=== PATIENT | male | born 1975 | race Caucasian/White ===

== ENCOUNTER 2022-01-15 17:51 | Outpatient (CLI) | payer BC, SELFPAY ==
--- NOTE | ~2022-01-15 | XR_ITS ---
EXAMINATION: XR chest 2V DATE: 01/15/2022 18:08 INDICATION: Dyspnea TECHNIQUE: PA and lateral views of the chest were obtained. COMPARISON: Chest radiograph dated 05/19/13 FINDINGS: The lungs remain clear with no focal airspace opacities, pulmonary edema, pleural effusion or pneumot horax. The cardiomediastinal silhouette is normal. Visualized bones and soft tissues are unremarkable . Cholecystectomy clips in the right upper quadrant. IMPRESSION: 1. No acute cardiopulmonary disease. Reviewed, dictated and finalized at location A.
== END 2022-01-15 17:52 | disposition home or self-care (01) ==
PROVIDERS: PCP Nurse Practitioner Family; Visit Provider Nurse Practitioner Family
DX: R06.09 Other forms of dyspnea (principal); H54.7 Unspecified visual loss
CPT/HCPCS: 71046

== ENCOUNTER 2022-01-20 16:11 | Outpatient (CLI) | payer BC, SELFPAY ==
--- NOTE | ~2022-01-20 | US_ITS ---
EXAMINATION: US carotid duplex BI DATE: 01/20/2022 16:49 INDICATION: Visual loss and vertigo TECHNIQUE: Grayscale, color Doppler, and pulsed Doppler images of the cervical carotid arteries were obtained. The degree of vessel stenosis is placed in one of the following categories: normal, <50%, 5 0-69%, >=70% but less than near-occlusion, near-occlusion, or total occlusion. Note that percent sten osis relative to normal distal artery lumen diameter is indirectly measured from velocity measurement s as described by Monroe, et al. Radiology 2003; 229:340-346. Notes: Normal: Peak systolic velocity <125 centimeters/sec and no plaque <50%. Peak systolic velocity <125 ( EDV <40; ICA/CCA PSV ratio <2.0; used these factors only a tandem lesions or low cardiac output or co ntralateral disease) 50-69 %: PSV 125-230 (EDV 40-100; ratio 2-4) >= 70% but less than near occlusion: PSV greater than 230 (EDV > 100; ratio> 4.0) Near Occlusion: PSV that is variable; markedly narrowed lumen Occlusion: Absent flow on color/spectral Doppler and no lumen on carrion scale. COMPARISON: None. FINDINGS: RIGHT: The right common carotid artery (CCA) peak systolic velocity (PSV) is 82 cm/s. The right internal car otid artery (ICA) PSV is 57 cm/s. The right ICA end-diastolic velocity (EDV) is 21 cm/s. The right IC A/CCA PSV ratio is 0.7. The external carotid artery (ECA) PSV is 107 cm/s. There is antegrade flow in the right vertebral artery. LEFT: The left CCA PSV is 85 cm/s. The left ICA PSV is 82 cm/s. The left ICA EDV is 25 cm/s. The left ICA/C CA PSV ratio is 1.0. The ECA PSV is 83 cm/s. There is antegrade flow in the left vertebral artery. IMPRESSION: 1. Less than 50% stenosis in the right internal carotid artery by sonographic criteria. 2. Less than 50% stenosis in the left internal carotid artery by sonographic criteria. Reviewed, dictated and finalized at location A. IMPRESSION: 1. Less than 50% stenosis in the right internal carotid artery by sonographic c zohaib. 2. Less than 50% stenosis in the left internal carotid artery by sonographic yamileth johnson.
== END 2022-01-20 16:12 | disposition home or self-care (01) ==
PROVIDERS: PCP Nurse Practitioner Family; Visit Provider Nurse Practitioner Family
DX: R06.09 Other forms of dyspnea (principal); H54.7 Unspecified visual loss; I65.23 Occlusion and stenosis of bilateral carotid arteries
CPT/HCPCS: 93880

== ENCOUNTER 2022-01-28 08:42 | Outpatient (CLI) | payer BC, SELFPAY ==
--- NOTE | ~2022-01-28 | CT_ITS ---
EXAMINATION: CT BRAIN W/O DATE: 01/28/2022 08:59 INDICATION: Near syncope. Headaches. Dilated pupils with dizziness. TECHNIQUE: Computed tomography (CT) of the head was performed without intravenous contrast. The dose- length product was 605.33 mGy-cm. Automated exposure control and iterative reconstruction technique w ere employed. COMPARISON: No prior studies for comparison. FINDINGS: Normal brain parenchymal volume for age. Normal carrion-white differentiation. No acute intrac ranial hemorrhage, infarction, mass or mass effect. No ventriculomegaly or midline shift. Midline sagittal images demonstrate a normal corpus callosum, c raniovertebral junction and sella turcica. Basilar cisterns are patent. Paranasal sinuses and mastoids are pneumatized. No depressed skull fractures. IMPRESSION: 1. No acute intracranial abnormality. Reviewed, dictated and finalized at location B.
== END 2022-01-28 08:43 | disposition home or self-care (01) ==
PROVIDERS: PCP Nurse Practitioner Family; Visit Provider Nurse Practitioner Family
DX: R42 Dizziness and giddiness (principal)
CPT/HCPCS: 70450

== ENCOUNTER 2022-04-22 08:42 | Emergency (ER) | payer BC, SELFPAY ==
--- NOTE | ~2022-04-22 | XR_ITS ---
EXAMINATION: XR chest 2V DATE: 04/22/2022 09:29 INDICATION: Right lower chest pain. TECHNIQUE: Frontal and lateral views of the chest were obtained. COMPARISON: Chest 2 views 01/15/2022 FINDINGS: There is mild atelectasis in left lower lung zone. No pleural effusion or pneumothorax. The heart size is normal. Surgical clips in the right upper quadrant are likely from cholecystectomy. IMPRESSION: 1. Mild atelectasis in left lower lung zone. Reviewed, dictated and finalized at location A. RIALS ASSOCIATE
--- NOTE | ~2022-04-22 | CT_ITS ---
EXAMINATION: CTA chest PE abdomen pel DATE: 04/22/2022 11:09 INDICATION: Chest pain which worsens with inspiration. Coughing and sneezing. Right upper quadrant ab dominal pain. TECHNIQUE: Computed tomography (CT) pulmonary angiogram of the chest was performed with 100 mL Omnipa que-350 intravenous contrast. Additional 3D reconstructions utilizing coronal maximum intensity proje ction (MIP) were performed. CT of the abdomen and pelvis was performed with intravenous contrast util izing the same contrast bolus following a short delay. Automated exposure control and iterative recon struction technique were employed. The dose-length product was 2536.66 mGy-cm. COMPARISON: None FINDINGS: Chest: The proximal but still adequate contrast opacification of the pulmonary arteries. Mild respiratory mo tion which does not significantly limit evaluation. No pulmonary embolism. Mild emphysema. Mild disco id atelectasis/scarring at the left lower lobe and lingula. Minimal dependent atelectasis in the bila teral lower lobes. No pneumonia, pulmonary edema, pleural effusion or pneumothorax. Heart size is nor mal. No pericardial or pleural effusion. Thoracic aorta is normal in caliber with no dissection. No p athologically enlarged thoracic lymphadenopathy. Mild upper thoracic levocurvature. Abdomen/pelvis: Cholecystectomy clips the gallbladder fossa. Liver, spleen, pancreas, bilateral adrenal glands and ki dneys are normal. Change of likely prior appendectomy with suture line near the tip of a small residu al appendiceal stump. No abnormal bowel wall thickening or obstruction. Partially decompressed bladde r is normal. No free intraperitoneal gas or fluid. No pathologically enlarged abdominal or pelvic lym phadenopathy. Bones are unremarkable. IMPRESSION: 1. No pulmonary embolism or other acute cardiopulmonary disease. 2. No acute intra-abdominal/pelvic process. Reviewed, dictated and finalized at location A. IX SUPERVISOR
[2022-04-22 08:43] VITALS: BP 139/93; PULSE 66; RESP 16; TEMP 36.6; O2SAT 100
--- NOTE | 2022-04-22 09:00 | ED.ABDPAIN ---
HPI - Abdominal Pain General Chief Complaint: Abdominal Pain Stated Complaint: RUQ abdominal pain - previous cholecystectomy Time Seen by Provider: 04/22/22 08:48 Source: RN notes reviewed History of Present Illness HPI narrative: Patient presents emergency room from home for right upper quadrant abdominal pain. Patient states the pain began 2 days ago. The pain is described as sharp and stabbing and does not radiate states the pain is improved when he sits upright and is worse with deep inspiration and movement such as twisting. He denies any fevers or chills he denies any nausea vomiting diarrhea or any other symptoms states he has not take anything for the pain states he does have a history of a previous cholecystectomy states the pain is constant Related Data Allergies Allergy/AdvReac Type Severity Reaction Status Date / Time No Known Allergies Allergy Unknown Verified 04/22/22 08:51 Review of Systems Review of Systems: Gen.: Denies fevers or chills ENT: Denies congestion Respiratory: Denies shortness of breath or cough CV: Denies chest pain or palpitations GI: See HPI denies burning, urgency, frequency or hematuria Musculoskeletal: Denies back pain or muscle pain Neuro: Denies numbness, tingling, weakness or focal weakness Skin: Denies rash Except as documented, all other systems reviewed and negative PMFSH Past Medical History Medical History (Updated 04/22/22 @ 12:10 by Hunter Rice DO) Patient denies significant medical history Surgical History Surgical History (Updated 04/22/22 @ 09:01 by Hunter Rice DO) Hx of cholecystectomy Social History Social History (Updated 04/22/22 @ 09:01 by Hunter Rice DO) Smoking status: Never smoker Exam Narrative: APPEARANCE: No acute distress, nontoxic, resting in bed HEENT: Normocephalic, atraumatic, OMM RESPIRATORY: No respiratory distress, clear to auscultation bilaterally with no rhonchi wheezing or rales CARDIOVASCULAR: RRR s murmur ABDOMINAL: Soft nondistended tender palpation right upper quadrant pain with twisting of the abdomen no tenderness left lower quadrant, left lower quadrant and right lower quadrant no rebound or MUSCULOSKELETAl: Moves all extremities. No clubbing, cyanosis or edema. NEURO: Awake and alert. Following commands, speech normal, no focal deficits SKIN:: Warm, dry. Normal Color PSYCHIATRIC: Normal affect/mood Course Course Emergency Course: Discussed with patient results of workup and diagnosis. Discussed need for follow-up with primary care, proper use of medication, and reasons to return to the emergency department. Patient understands and agrees to current treatment plan Vital Signs Vital signs: Vital Signs Temperature 97.9 F 04/22/22 08:43 Pulse Rate 66 04/22/22 08:43 Respiratory Rate 16 04/22/22 08:43 Blood Pressure 139/93 H 04/22/22 08:43 Pulse Oximetry 100 04/22/22 08:43 Oxygen Delivery Room Air 04/22/22 08:43 Temperature 97.9 F 04/22/22 08:43 Pulse Rate 52 L 04/22/22 11:38 Respiratory Rate 19 04/22/22 11:38 Blood Pressure 126/76 04/22/22 11:38 Pulse Oximetry 99 04/22/22 11:38 Oxygen Delivery Room Air 04/22/22 08:43 MDM - Abdominal Pain MDM Narrative Medical decision making narrative: Patient's abdomen is soft without significant pain or signs of surgical abdomen on serial exams. Lab and x-ray evaluations are reviewed and patient is felt to be a reasonable candidate for outpatient management. Patient was instructed as to limitations of x-ray and laboratory evaluation and encouraged to return to ED or primary physician for repeat exam in 12 hours if continued or worsening pain with pain with movement and twisting I suspect a component of musculoskeletal pain and possible abdominal wall strain Lab Data Result diagrams: 04/22/22 09:03 04/22/22 09:03 Labs: Lab Results 04/22/22 04/22/22 04/22/22 Range/Units 09:03 09:03 09:31
[2022-04-22] MEDS: KETOROLAC 30 MG/ML VIAL (*BKC) IV PUSH (09:06)
[2022-04-22 09:08] LABS: Basophils Percent Auto 0.5 % (0.2-1.2); Eosinophils Absolute Auto 0.1 K/mm3 (0-0.3); Eosinophils Percent Auto 1.4 % (0-4.4); Hematocrit 45.6 % (42.0-52.0); Hemoglobin 15.7 g/dL (14.0-18.0); Immature Granulocyte Absolute 0.01 K/mm3 (0.00-0.031); Immature Granulocyte Percent A 0.2 % (0-0.5); Lymphocytes Absolute Auto 1.62 K/mm3 (0.9-3.2); Lymphocytes Percent Auto 29.2 % (18.3-44.2); Mean Corpuscular HGB Conc 34.4 g/dl (32-36); Mean Corpuscular Hemoglobin 31.3 pg (26-34); Mean Corpuscular Volume 90.8 fl (80-100); Monocytes Absolute Auto 0.5 K/mm3 (0.1-0.6); Neutrophils Absolute Auto 3.3 K/mm3 (1.3-6.7); Neutrophils Percent Auto 59.7 % (45.5-73.1); Platelet Count Result 241 k/mm3 (150-375); Red Blood Count 5.02 M/mm3 (4.6-6.20); Red Cell Distribution Width 12.9 % (11.5-14.5); White Blood Count 5.5 K/mm3 (4.5-10.0)
[2022-04-22 09:20] LABS: Alanine Aminotransferase 61 U/L (6-50); Albumin Level 4.7 g/dL (3.5-5.1); Alkaline Phosphatase 115 U/L (38-126); Anion Gap 15 mmol/L (8-16); Aspartate Amino Transferase 36 U/L (17-59); Bilirubin,Total 0.7 mg/dL (0.2-1.3); Blood Urea Nitrogen 15 mg/dL (9-20); Calcium 9.1 mg/dL (8.4-10.2); Carbon Dioxide 26 mmol/L (22-30); Chloride 101 mmol/L (98-107); Estimated CRCL calculation 103 ml/min; Estimated Glomerular Filt Rate > 60; Glucose 98 mg/dL (65-110); Lipase 70 U/L (23-300); Potassium 3.9 mmol/L (3.4-5.0); Sodium 142 mmol/L (137-145)
--- NOTE | 2022-04-22 09:25 | PC.NURSE ---
pt unable to provide urine sample at this time. pt declining straight cath.
[2022-04-22 10:01] VITALS: BP 154/100; PULSE 55; RESP 15; O2SAT 98
[2022-04-22 10:09] LABS: Appearance Urine Clear (Clear); Bilirubin Urine 1+ (Negative); Blood Urine Negative (Negative); Color Urine Yellow (Yellow); Glucose Urine UA Negative (Negative); Ketones Urine Trace mg/dL (Negative); Leukocyte Esterase Ur Negative LEU/UL (Negative); Nitrate Urine Negative (Negative); Protein Urine Trace mg/dL (Negative); Specific Grav Ur >= 1.030 (1.001-1.035); Urobilinogen Urine 0.2 mg/dL (<2.0); pH Urine 5.5 (5.0-9.0)
[2022-04-22 10:21] LABS: Amorphous Sediment Urine Few; Bacteria Urine Trace /hpf; Mucus Urine Moderate /lpf; RBC Urine 0-2 /hpf (0-2); WBC Urine 0-3 /hpf
[2022-04-22 10:23] LABS: Add Urine Microscopic? YES
[2022-04-22 11:38] VITALS: BP 126/76; PULSE 52; RESP 19; O2SAT 99
[2022-04-22 12:40] VITALS: BP 129/83; PULSE 55; RESP 17; O2SAT 100
== END 2022-04-22 12:42 | disposition home or self-care (01) ==
PROVIDERS: Emergency Provider Emergency Medicine; PCP Nurse Practitioner Family
DX: R10.11 Right upper quadrant pain (principal)
CPT/HCPCS: 36415; 71046; 71275; 74177; 80053; 81001; 83690; 85025; 85380; 96374; 99284; J1885; Q9967

== ENCOUNTER 2022-07-11 09:51 | Outpatient (CLI) | payer BC, SELFPAY ==
[2022-07-11 12:38] LABS: Hemoglobin A1C 4.7 % (<5.7)
== END 2022-07-11 09:52 | disposition home or self-care (01) ==
LOC: ANHLAB 09:56
PROVIDERS: PCP Family Medicine
DX: R42 Dizziness and giddiness (principal)
CPT/HCPCS: 36415; 82607; 83036; 84155; 84165

== ENCOUNTER 2022-07-13 09:12 | Outpatient (NON) | payer BC, SELFPAY ==
[2022-07-16 19:25] LABS: Calculated Total (E+NE) 41 mcg/24 h (26-121); Dopamine, 24hr Urine 371 mcg/24 h (52-480); Norepinephrine, 24hr Urine 41 mcg/24 h (15-100)
== END 2022-07-13 09:13 | disposition home or self-care (01) ==
PROVIDERS: PCP Family Medicine
DX: R42 Dizziness and giddiness (principal)
CPT/HCPCS: 82384

== ENCOUNTER 2022-11-04 10:27 | Outpatient (CLI) | payer BC, SELFPAY ==
[2022-11-04 11:06] LABS: Cholesterol 176 mg/dL (0-200); HDL Direct 39 mg/dL; Triglycerides 112 mg/dL (<150)
[2022-11-04 11:28] LABS: Free T4 Free Thyroxine 1.38 ng/mL (0.78-2.19)
[2022-11-04 11:55] LABS: LDL Cholesterol Direct 111 mg/dL
[2022-11-09 02:17] LABS: Thyroid Peroxidase Antibodies 558 IU/mL (<9)
== END 2022-11-04 10:28 | disposition home or self-care (01) ==
PROVIDERS: Visit Provider Internal Medicine
DX: E03.9 Hypothyroidism, unspecified (principal)
CPT/HCPCS: 36415; 80061; 84439; 84443; 86376

== ENCOUNTER 2022-11-04 10:54 | Outpatient (CLI) | payer BC, SELFPAY ==
--- NOTE | ~2022-11-04 | US_ITS ---
Thyroid ultrasound. Clinical History: Hypothyroid Findings: Real-time sonography of the thyroid gland was performed. The right lobe measures 5.3 x 2.7 x 2.2 cm. The left lobe measures 4.6 x 1.7 x 2.1 cm. The isthmus is 4 mm in AP diameter. Thyroid parenchyma is diffusely heterogeneous, without definite, discrete nodule. Impression: Heterogeneous thyroid gland without definite discrete nodule. Reviewed, dictated and finalized at [facility]. Impression: Heterogeneous thyroid gland without definite discrete nodule.
== END 2022-11-04 10:55 ==
LOC: MICIMG 10:55
PROVIDERS: PCP Internal Medicine; Visit Provider Internal Medicine
DX: E03.9 Hypothyroidism, unspecified (principal)
CPT/HCPCS: 76536

== ENCOUNTER 2022-11-06 12:59 | Outpatient (NON) | payer BC, SELFPAY ==
[2022-11-20 16:28] LABS: Cortisol, Saliva 0.23 mcg/dL
[2022-11-20 16:28] LABS: Cortisol, Saliva 0.18 mcg/dL
== END 2022-11-06 13:00 | disposition home or self-care (01) ==
PROVIDERS: PCP Internal Medicine; Visit Provider Internal Medicine
DX: E03.9 Hypothyroidism, unspecified (principal); R63.5 Abnormal weight gain
CPT/HCPCS: 82530

== ENCOUNTER 2022-12-18 12:56 | Outpatient (CLI) | payer BC, SELFPAY ==
[2022-12-18 14:22] LABS: Free T4 Free Thyroxine 1.29 ng/mL (0.78-2.19)
== END 2022-12-18 12:57 | disposition home or self-care (01) ==
PROVIDERS: PCP Internal Medicine; Visit Provider Internal Medicine
DX: E03.9 Hypothyroidism, unspecified (principal); E06.3 Autoimmune thyroiditis
CPT/HCPCS: 36415; 84439; 84443

== ENCOUNTER 2022-12-23 11:25 | Outpatient (CLI) | payer BC, SELFPAY | END 2022-12-23 11:26 | disposition home or self-care (01) | LOC: ANHLAB 11:26 | PROVIDERS: PCP Internal Medicine; Visit Provider Internal Medicine | DX: E03.9 Hypothyroidism, unspecified (principal); R63.5 Abnormal weight gain | CPT/HCPCS: 82530 ==

== ENCOUNTER 2023-01-28 15:28 | Outpatient (CLI) | payer BC, SELFPAY ==
[2023-01-28 17:39] LABS: Free T4 Free Thyroxine 1.39 ng/mL (0.78-2.19)
== END 2023-01-28 15:29 | disposition home or self-care (01) ==
LOC: ANHLAB 15:29
PROVIDERS: PCP Family Medicine; Visit Provider Internal Medicine
DX: E03.9 Hypothyroidism, unspecified (principal)
CPT/HCPCS: 36415; 84439; 84443

== ENCOUNTER 2023-05-03 13:07 | Outpatient (CLI) | payer BC, SELFPAY ==
[2023-05-03 14:14] LABS: Free T4 Free Thyroxine 1.75 ng/mL (0.78-2.19)
== END 2023-05-03 13:08 | disposition home or self-care (01) ==
PROVIDERS: PCP Family Medicine; Visit Provider Internal Medicine
DX: E03.9 Hypothyroidism, unspecified (principal)
CPT/HCPCS: 36415; 84439; 84443

== ENCOUNTER 2024-01-11 14:25 | Outpatient (CLI) | payer BC, SELFPAY ==
--- NOTE | ~2024-01-11 | XR_ITS ---
XR chest 2V Ordering provider: Robles Marquis MD History: 48 years Male with . R06.02 - Shortness of breath . Comparison: April 22, 2022 FINDINGS: MEDIASTINUM: The cardiac silhouette is not enlarged. LUNGS: No infiltrates, effusions or pneumothorax. OTHER: No free air under the diaphragm. IMPRESSION: No acute cardiopulmonary pathology. Reviewed, dictated and finalized at location A.
== END 2024-01-11 14:26 ==
LOC: MICIMG 14:26
PROVIDERS: PCP Family Medicine; Visit Provider Family Medicine
DX: R06.02 Shortness of breath (principal)
CPT/HCPCS: 71046

== ENCOUNTER 2024-03-14 12:42 | Outpatient (CLI) | payer BC, SELFPAY ==
--- NOTE | ~2024-03-14 | US_ITS ---
EXAMINATION: US thyroid DATE: 03/14/2024 12:59 INDICATION: Goiter. Left neck lump. TECHNIQUE: Multiple ultrasound images of the thyroid were obtained. COMPARISON: Ultrasound 11/04/2022 FINDINGS: The right thyroid lobe measures 5.2 x 2.0 x 2.4 cm. The left thyroid lobe measures 4.8 x 1.7 x 1.7 c m. The thyroid is diffusely hypoechoic with coarsened echotexture. Vascularity is normal. No discret e nodule. IMPRESSION: 1. Heterogeneous thyroid, consistent with chronic lymphocytic (Elian) thyroiditis. Reviewed, dictated and finalized at location A. IMPRESSION: 1. Heterogeneous thyroid, consistent with chronic lymphocytic (Elian) thyro iditis.
== END 2024-03-14 12:43 | disposition home or self-care (01) ==
LOC: GOSHIMG 12:43
PROVIDERS: PCP Family Medicine; Visit Provider Internal Medicine
DX: E04.1 Nontoxic single thyroid nodule (principal)
CPT/HCPCS: 76536

== ENCOUNTER 2024-12-19 13:35 | Outpatient (CLI) | payer OTHER, SELFPAY ==
--- NOTE | ~2024-12-19 | XR_ITS ---
EXAM/ PROCEDURE: XR foot LT 2V - 12/19/2024 13:37 CDT HISTORY: 49 years old Male with M79.672 - Pain in left foot COMPARISON: None available TECHNIQUE: Three view(s) FINDINGS/ IMPRESSION: There are no fractures or dislocations.Joint spaces are within normal limits. Mild hallux valgus deformity and mild bunion formation. Reviewed, dictated and finalized at location A.
== END 2024-12-19 13:36 | disposition home or self-care (01) ==
LOC: MICIMG 13:36
PROVIDERS: PCP Family Medicine; Visit Provider Nurse Practitioner Adult Health
DX: M20.12 Hallux valgus (acquired), left foot (principal); M21.612 Bunion of left foot
CPT/HCPCS: 73620

== ENCOUNTER 2024-12-26 15:11 | Outpatient (CLI) | payer OTHER, SELFPAY ==
--- NOTE | ~2024-12-26 | US_ITS ---
US thyroid INDICATION: Palpable thyroid lumps TECHNIQUE: Real-time sonographic images of the thyroid gland were obtained. COMPARISON: Ultrasound dated 03/14/2024 FINDINGS: The right thyroid lobe measures 4.4 x 2.4 x 2.2 cm. The left thyroid lobe measures 3.8 x 1 .8 x 1.6 cm.. There is heterogeneous echotexture and echogenicity throughout the thyroid gland. No di screte nodules identified. Normal vascular flow is present. There are multiple lymph nodes all with fatty hilum, largest on the right measuring 2.2 x 0.6 x 0.9 cm and on the left measuring 1.6 x 0.9 x 0.4 cm. IMPRESSION: 1. Bilateral cervical lymph nodes all with normal fatty hilum, likely reactive.. Reviewed, dictated and finalized at location B. IMPRESSION: 1. Bilateral cervical lymph nodes all with normal fatty hilum, likely reactive ..
== END 2024-12-26 15:12 | disposition home or self-care (01) ==
LOC: MICIMG 15:12
PROVIDERS: PCP Family Medicine; Visit Provider Internal Medicine
DX: E04.9 Nontoxic goiter, unspecified (principal); R59.0 Localized enlarged lymph nodes; E06.3 Autoimmune thyroiditis
CPT/HCPCS: 76536

== ENCOUNTER 2025-01-12 09:19 | Outpatient (CLI) | payer OTHER, SELFPAY ==
--- NOTE | ~2025-01-12 | MR_ITS ---
EXAMINATION: MR foot LT wo con DATE: 01/12/2025 10:03 INDICATION: Acquired hallux valgus at the left foot TECHNIQUE: Magnetic resonance imaging (MRI) of the left fore/mid foot was performed without intraveno us contrast. Sequences included sagittal T1-weighted FSE, sagittal fluid sensitive FSE STIR, coronal PD-weighted FS FSE, coronal T1-weighted FSE, axial PD-weighted FS FSE, and axial PD-weighted FSE. COMPARISON: Radiographs dated 12/19/2024 FINDINGS: Mild hallux valgus. Normal bone marrow signal throughout with no fracture, reactive edema or patholog ic marrow replacing process. Mild osteoarthritis and the first and a few of the tarsal metatarsal emanuel nts. Visualized amount fluid in the joint space. Single small erosion with low signal intensity perip heral sclerotic margins at the medial/plantar aspect of the proximal metaphysis of the fourth metatar montserrat. No other erosions identified.. No joint effusions, bursitis or tenosynovitis. The Lisfranc ligam ent complex as well as the collateral ligament complex at the metatarsophalangeal and interphalangeal joints are normal. Visualized portions of the flexor and extensor tendons are normal. Visualized int rinsic musculature of the foot is unremarkable. IMPRESSION: 1. Mild hallux valgus with mild osteoarthritis at the first metatarsophalangeal and a few tarsometata rsal joints. 2. Single nonspecific small erosion at the medial/plantar aspect of the metatarsal region of the four th metatarsal. Reviewed, dictated and finalized at location A. IMPRESSION: 1. Mild hallux valgus with mild osteoarthritis at the first metatarsophalangeal and a few tarsometatarsal joints. 2. Single nonspecific small erosion at the medial/plantar aspect of the metatar montserrat region of the fourth metatarsal.
== END 2025-01-12 09:20 | disposition home or self-care (01) ==
LOC: MICIMG 09:20
PROVIDERS: PCP Family Medicine; Visit Provider Nurse Practitioner Adult Health
DX: M20.12 Hallux valgus (acquired), left foot (principal); M21.612 Bunion of left foot; M19.072 Primary osteoarthritis, left ankle and foot
CPT/HCPCS: 73718